=== PATIENT | female | born 1930 | race Caucasian/White ===

== ENCOUNTER → 2017-08-26 | Outpatient (REF) | payer MEDICARE, OTHER ==
[2017-01-02 10:25] VITALS: BMI 25.2
[~2017-08-26] MED LIST: ACE500 PO; AMLO-1 PO; AMLO1TAB PO; AMOX-362 PO; AMOX500T10 PO; ASC500 PO; ASPI-757 PO; ATEN-1 PO; CALC-649 PO; CALC-852 PO; CEFU500T10 PO; CELE-1 PO; CEPH250C37 PO; CYA1000 PO; CYAN100T31 PO; DULO60CA56 PO; EZE10 PO; GLUC-232 PO; GLUCOSAMINE CHO1 CA3 PO; HCTZ25 PO; HYDR-385 PO; HYDR-389 PO; HYDR-4308 PO; IBUP-56 PO; IBUP200C71 PO; IRON1TAB4 PO; LEVO250T41 PO; LEVO25TA56 PO; LEVO50TA80 PO; LISI-346 PO; MAGN400C PO; MULT-1335 PO; NAP250 PO; OMEG-11 PO; OMEG500C5 PO; OMEP-153 PO; PAN40 PO; ZOLP-350 PO
== END ==
LOC: ZZSENDIN 09:48
PROVIDERS: ATTEND Physician Assistant Medical
DX: L03.031 Cellulitis of right toe (principal)
CPT/HCPCS: 85651

== ENCOUNTER → 2017-09-20 | Outpatient (CLI) | payer MEDICARE, OTHER ==
[2017-01-02 10:25] VITALS: BMI 25.2
== END ==
LOC: CT 14:55
PROVIDERS: ATTEND Orthopaedic Surgery Hand Surgery
DX: Z02.9 Encounter for administrative examinations, unspecified (principal)

== ENCOUNTER → 2017-09-23 | Outpatient (CLI) | payer MEDICARE, OTHER ==
[2017-01-02 10:25] VITALS: BMI 25.2
--- NOTE | 2017-09-23 13:28 | RADIOLOGY IMAGING REPORT ---
[place] [facility] [place] NAME: ROME NELSON : [id number] MR: [id number] V: [id number] EXAM DATE: ORDERING PHYSICIAN: JEROME BRAGG TECHNOLOGIST: Caryl Jorge PROCEDURE:BILATERAL DIGITAL SCREENING MAMMOGRAM WITH CAD ASSISTED INTERPRETATION & 3D TOMOSYNTHESIS COMPARISON:Prior mammograms 03/16/16, 01/22/15, 02/04/14, 12/14/12, 01/04/12 INDICATIONS:SCREENING FINDINGS: Small amount of fibroglandular tissue is seen throughout the breasts. The parenchymal pattern has remained stable allowing for difference in mammographic technique & patient positioning. There is no evidence of malignant appearing mass, malignant appearing calcifications or other secondary sign of malignancy in either breast. DIAGNOSTIC CATEGORY 1--NEGATIVE. RECOMMENDATIONS: ROUTINE MAMMOGRAM AND CLINICAL EVALUATION. IMPRESSION: BIRADS 1: Negative No significant abnormality is seen Dictated by: Saba Rubalcava M.D. on 09/23/2017 at 10:58 Transcribed by: ABEL on 09/23/2017 at 13:04 Approved by: Saba Rubalcava M.D. on 09/23/2017 at 13:27 [facility]
== END ==
LOC: MAMO 02:57
PROVIDERS: ATTEND Family Medicine
DX: Z12.31 Encounter for screening mammogram for malignant neoplasm of breast (principal)
CPT/HCPCS: 77063; 77067

== ENCOUNTER → 2017-09-28 | Outpatient (CLI) | payer MEDICARE, OTHER ==
[2017-01-02 10:25] VITALS: BMI 25.2
--- NOTE | 2017-09-28 16:13 | EKG ---
FACILITY: [facility] PATIENT NAME: ROME NELSON : [id number] MR: [id number] V: [id number] EXAM DATE: ORDERING PHYSICIAN: WINSTON NG TECHNOLOGIST: SHAWNA Test Reason : PRE-OP Blood Pressure : / mmHG Vent. Rate : 080 BPM Atrial Rate : 080 BPM P-R Int : 156 ms QRS Dur : 108 ms QT Int : 384 ms P-R-T Axes : 067 000 063 degrees QTc Int : 442 ms Normal sinus rhythm Incomplete right bundle branch block Borderline ECG When compared with ECG of 19-NOV-2016 12:59, No significant change was found Confirmed by JEROME GOEL ([id number]) on 09/28/2017 6:26:37 PM Referred By: rohini Confirmed By:JEROME GOEL
[2017-09-28 16:33] LABS: PLATELET COUNT, AUTOMATED 290 K/uL (150-450)
== END ==
LOC: LAB 15:31
PROVIDERS: ATTEND Orthopaedic Surgery Hand Surgery
DX: Z01.810 Encounter for preprocedural cardiovascular examination (principal); Z01.812 Encounter for preprocedural laboratory examination; I45.10 Unspecified right bundle-branch block; I10 Essential (primary) hypertension; E03.9 Hypothyroidism, unspecified; N39.0 Urinary tract infection, site not specified; C44.90 Unspecified malignant neoplasm of skin, unspecified; M25.512 Pain in left shoulder; M19.012 Primary osteoarthritis, left shoulder
CPT/HCPCS: 36415; 81001; 82040; 82247; 82310; 82374; 82435; 82565; 82947; 84075; 84132; 84155; 84295; 84450; 84460; 84520; 85025; 87088; 93005

== ENCOUNTER → 2017-10-06 | Outpatient (REF) | payer MEDICARE, OTHER ==
[2017-01-02 10:25] VITALS: BMI 25.2
== END ==
LOC: ZZSENDIN 17:08
PROVIDERS: ATTEND Family Medicine
DX: Z01.818 Encounter for other preprocedural examination (principal)
CPT/HCPCS: 81001

== ENCOUNTER 2017-10-28 01:58 | Inpatient (IN) | payer MEDICARE, OTHER ==
[2017-10-27 16:08] LABS: INR 0.98
[2017-10-28] VITALS (15 sets, daily range): BP systolic 85–147; BP diastolic 37–84
[~2017-10-28] VITALS: Ht 167.6 cm; Wt 70.3 kg
[2017-10-28] MEDS ORDERED: TRANEXAMIC AC 1000 MG/10ML SDV 1,000 MG in DEXTROSE 5% 50 ML BAG 50 ML IV ONE (06:15)
[2017-10-28] MEDS ORDERED: LIDOCAINE/SOD BICARB 8.4% SYR ID ONE (06:15)
[2017-10-28] MEDS ORDERED: VANCOMYCIN 1 GM ADDVIAL 1 GM in NS(*) 0.9% 250 ML ADDVAN BAG 250 ML IVPB ONE (06:15)
[2017-10-28] MEDS ORDERED: MIDAZOLAM 2 MG/2 ML VIAL IVP PRN (06:15)
[2017-10-28] MEDS ORDERED: FAMOTIDINE 20 MG TAB PO ONE (06:15)
[2017-10-28] MEDS ORDERED: NORMOSOL R SOLN(*) 1000 ML BAG 1,000 ML IV PRN (06:15)
[2017-10-28] MEDS ORDERED: cloNIDine EPIDUR INJ 100MCG/ML 40 MCG, ROPIVACAINE 0.5% 20 ML VIAL 25 ML, EPINEPHrine H... INJ ONE (06:15)
[2017-10-28] MEDS ORDERED: THROMBIN TOP SOLN 5000INTLU VL ONE (06:29)
[2017-10-28] MEDS ORDERED: GELATIN SPONGE 12-7MM ONE (06:30)
[2017-10-28] MEDS ORDERED: fentaNYL CITR 100 MCG/2 ML AMP ONE (06:47)
[2017-10-28] MEDS ORDERED: ACETAMINOPHEN(*)1000 MG/100 ML 100 ML IVPB ONE (06:49)
[2017-10-28] MEDS ORDERED: DEXAMETHASONE SOD 4 MG/ML VIAL ONE (06:50)
[2017-10-28] MEDS ORDERED: PROPOFOL EMUL(*) 10MG/ML 20 ML 20 ML ONE (06:50)
[2017-10-28] MEDS ORDERED: LIDOCAINE MPF 1% 5 ML VIAL ONE ×2 (06:50→07:48)
[2017-10-28] MEDS ORDERED: ONDANSETRON 4 MG/2 ML VIAL ONE (06:50)
[2017-10-28] MEDS ORDERED: EPINEPHrine HCL 1 MG/ML AMP ONE (06:53)
[2017-10-28] MEDS ORDERED: ROPIVACAINE 0.5% 20 ML VIAL ONE (06:53)
[2017-10-28] MEDS ORDERED: NS 0.9% 20 ML SDV 20 ML ONE (06:53)
[2017-10-28] MEDS ORDERED: ePHEDrine 25 MG/5 ML DISP.SYR IVP ONE (07:35)
[2017-10-28] MEDS ORDERED: SUGAMMADEX SOD 200 MG/2 ML SDV ONE (07:49)
[2017-10-28] MEDS ORDERED: VASOPRESSIN 20 UNIT/ML VIAL ONE (07:49)
[2017-10-28] MEDS ORDERED: PROMETHAZINE 25 MG/ML 1 ML AMP IVP PRN (10:00)
[2017-10-28] MEDS ORDERED: KCL/D5LR 20 MEQ/1000 ML PREMIX 1,000 ML IV PRN (10:00)
[2017-10-28] MEDS ORDERED: ONDANSETRON 4 MG/2 ML VIAL IVP PRN (10:00)
[2017-10-28] MEDS ORDERED: ACETAMINOPHEN 500 MG TAB PO PRN (10:00)
[2017-10-28] MEDS ORDERED: diphenhydrAMINE 25 MG CAP PO PRN (10:00)
[2017-10-28] MEDS ORDERED: FLUSH 10 ML SYR IVP PRN (10:00)
--- NOTE | 2017-10-28 11:28 | RADIOLOGY IMAGING REPORT ---
FACILITY: [facility] PATIENT NAME: Cassie Saini : 1930 MR: [id number] V: [id number] EXAM DATE: ORDERING PHYSICIAN: WINSTON NG TECHNOLOGIST: Location: [facility] Patient: Cassie Saini : 1930 Visit/Account:[id number] Date of Sevice: 10/28/2017 SHOULDER 1 VIEW LEFT HISTORY: POSTOP LTSA COMPARISON: None FINDINGS: Single AP view of the left shoulder demonstrates the patient is status post replacement of the glenohumeral joint. There is no evidence of acute bony abnormality The acromioclavicular joint is normal in appearance. IMPRESSION: Status post left glenohumeral joint replacement. Report Dictated By: Cordell Bashir at 10/28/2017 11:17 AM Report E-Signed By: Cordell Bashir at 10/28/2017 11:22 AM WSN:[id number]
--- NOTE | 2017-10-28 14:59 | OPERATIVE REPORT 1 ---
EVENT DATE: October 28, 2017 SURGEON: Eduardo Hughes MD ANESTHESIOLOGIST: Feroz Donahue MD ANESTHESIA: General plus scalene block. 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 PROCEDURES PERFORMED 1. Curettage of cyst at glenoid. 2. Total shoulder arthroplasty. ESTIMATED BLOOD LOSS 100 INTRAVENOUS FLUIDS Crystalloid 1400, no colloid. SPECIMENS No specimens. COMPLICATIONS No complications. IMPLANTS USED [employer] 12 stem, 12 body, 44 glenoid, 48 x 12 eccentric head. SUMMARY OF PROCEDURE The patient was brought into the operating room and placed on the OR table in the supine position. An ultrasound was used to guide a scalene block by Dr. Donahue, after which he undertook a general anesthetic. She was placed in a semi -beach chair position with a Rossi stand at her arm to help support her. We did a standard prep and drape. The draping included Ioban placed on the arm to include coverage of the axilla. A deltopectoral approach was taken, deepened through skin and subcutaneous tissue. We identified the cephalic vein and left it with the deltoid, retracting it laterally. The conjoined tendon was identified. I palpated the axillary nerve and then placed a retractor. She had a very large amount of fluid in a fairly firm sac that had quite a bit of solid tissue as well that was emanating from the joint in the rotator interval. Initially I just tried to drain this, but it was actually quite thick and large, so I did remove the entire structure. We then irrigated out the debris. All the fluid that came out of it was clear, and it looked like normal joint fluid. I then cut the subscapularis in an anatomic position about 1 cm medial to the insertion and then placed tagging sutures. We then brought the head up and made our initial cut after having marked the axis of the cut. We did this at about 30 degrees of retroversion. The extra osteophytes were removed, and we rasped the margins, and then protected the head with a cap. We pushed it posteriorly and then circumferentially cleared the tissue from around the glenoid. Unlike most total shoulder arthroplasties wherein the glenoid is exposed and you could easily see the eburnated surface, in her case it was covered in dense inflammatory tissue with globules of very firm material that was rather unusual. We tried curetting and using unipolar cautery to remove this material, and there were multiple defects in the glenoid tissue. It almost looked like "Micronesian cheese." This is concerning with respect to her capacity for stability, and we were very careful with our retractor so as not to break the glenoid. Ultimately, we were able to clear all the soft tissue debris and get a good look at what bone we actually had available. I trialed a couple different sizes. It looked like a 44 would fit. We marked the best central access point and reamed, taking care to ream only so much that we could get down to subchondral bone and create a flat back surface. I then trialed the peg trial which fit well, so we placed thrombin-soaked Gelfoam sponges into the four holes while I also obtained bone graft from the reamer as well as the back side of the head and packed it into the 44 Stuart Peg implant. Cement was mixed. The thrombin-soaked Gelfoam sponges were removed. The wound was irrigated, including the surface of the glenoid, and then we dried it out, injected cement into the three peripheral holes, and then inserted the Stuart Peg glenoid. We held it in place until full polymerization, removed any excess cement, and then moved on to the humerus. For the humerus, her bone was quite soft. We reamed up to a 12, did a Periosteotome, and then a trial, but I did have to use the split-head contents of the cancellous bone to graft the neck to place it into more normal position, but even with that, an eccentric head fit best. I trialed an 18 and a 21. It looked like the 21 fit best, so we opened that and placed three drill holes in the neck of the humerus and then implanted the final insert. The rotator cuff was then reduced, and it looked like the subscapularis fit very nicely. The wound was copiously irrigated. We did not do any deep injection because she had a block. We then repaired the subscapularis in anatomic position, and it was fairly good tissue. We used the transosseous sutures placed previously to augment the repair. The wound was irrigated one more time before closing subcutaneous tissue with 3-0 Vicryl, followed by 4-0 Monocryl for subcuticular closure with Steri-Strips applied. She was given a dry, sterile dressing and was awakened and transferred to the recovery area in stable condition. XENIA
--- NOTE | 2017-10-28 15:41 | Hospitalist Progress Note ---
Subjective Progress Notes Subjective No cp/sob. She had a bigeminal rhythm during surgery that resolved with stopping anesthetics. Lowest SBP was 80 during surgery. EBL was 100cc. 1400cc of crystalloid, TXA, dexamethasone, ephedrine, epinephrine and vasopressin given intra-op. Physical Exam Vital Signs Date Time Temp Pulse Resp B/P (MAP) Pulse Ox O2 Delivery O2 Flow Rate FiO2 10/28/17 13:41 72 10/28/17 13:00 112/57 (75) 94 Nasal Cannula 1.0 10/28/17 10:38 97.5 20 Intake and Output 10/29/17 07:00 Intake Total 2090 ml Output Total 100 ml Balance 1990 ml Intake Oral 440 ml IV Total 1650 ml Output Estimated Blood Loss 100 ml # Voids 3 General Appearance: Alert, Awake, No Acute Distress Cardiovascular: Regular Rate and Rhythm Respiratory: Clear to Auscultation Extremities: No Edema Result Diagram: 10/28/17 0944 Assessment and Plan Problems: (1) Status post total shoulder arthroplasty Status: Acute Assessment & Plan: No pulmonary issues. She had bigeminy after surgery induction (likely ventricular). See below. (2) Essential hypertension Status: Chronic Assessment & Plan: She is chronically on Exforge (amlodipine/valsartan/HCTZ), so will restart the medications individually based on BP. (3) Bigeminy Status: Acute Assessment & Plan: After induction of surgery she had frequent PVC's and bigeminy at times. She is asymptomatic. Because she received ephedrine, epinephrine and vasopressin intra-op, will get an ECG now and check a Troponin in the morning. She will be watched on telemetry. (4) Hypothyroid Status: Chronic Assessment & Plan: Continue levothyroxine. (5) Peripheral neuropathy Status: Chronic Assessment & Plan: Continue Duloxetine. Problem Qualifiers (1) Status post total shoulder arthroplasty: Laterality: left Qualified Codes: Z96.612 - Presence of left artificial shoulder joint EMMANUEL CHAPARRO MD Oct 28, 2017 15:41
--- NOTE | 2017-10-28 16:19 | EKG ---
FACILITY: [facility] [place] PATIENT NAME: ROME NELSON : [id number] MR: [id number] V: [id number] EXAM DATE: ORDERING PHYSICIAN: EMMANUEL CHAPARRO TECHNOLOGIST: RALPH Test Reason : BIGEMINY DURING SURG Blood Pressure : / mmHG Vent. Rate : 084 BPM Atrial Rate : 084 BPM P-R Int : 184 ms QRS Dur : 100 ms QT Int : 408 ms P-R-T Axes : 044 -11 029 degrees QTc Int : 482 ms Sinus rhythm with occasional premature ventricular complexes Otherwise normal ECG When compared with ECG of 28-SEP-2017 15:57, premature ventricular complexes are now present Incomplete right bundle branch block is no longer present Confirmed by EMMANUEL CHAPARRO ([id number]) on 10/28/2017 5:00:40 PM Referred By: HERNANDEZ Confirmed By:EMMANUEL CHAPARRO
[2017-10-28] MEDS: DULoxetine HCL 30 MG CAPCR PO SCH (21:05)
[2017-10-29 02:23] VITALS: BP 117/67
[2017-10-29] MEDS: APAP/HYDROCODONE 325/5 TAB PO PRN ×2 (04:33→11:48)
[2017-10-29] MEDS ORDERED: LEVOTHYROXINE SOD 0.05 MG TAB PO SCH (06:00)
[2017-10-29 06:44] LABS: PLATELET COUNT, AUTOMATED 224 K/uL (150-450)
--- NOTE | 2017-10-29 07:47 | Hospitalist Progress Note ---
Subjective Progress Notes Subjective No cp/sob. No concerns from the patient or staff. Physical Exam Vital Signs Date Time Temp Pulse Resp B/P (MAP) Pulse Ox O2 Delivery O2 Flow Rate FiO2 10/29/17 04:39 85 10/29/17 02:23 98.4 82 14 117/67 (84) Nasal Cannula 1.0 General Appearance: Alert, Awake, No Acute Distress Respiratory: Clear to Auscultation Result Diagram: 10/29/17 0556 10/29/17 0556 Assessment and Plan Problems: (1) Status post total shoulder arthroplasty Status: Acute Assessment & Plan: No pulmonary issues. She had bigeminy after surgery induction (likely ventricular). See below. (2) Hypoxia Status: Acute Assessment & Plan: The lungs are clear. There is low clinical suspicion for PE or pneumonia. It is secondary to narcotics, recent surgery and Kathryn's high elevation. If the patient goes home on O2, then the patient is to follow up the PCP's office to check a room air saturation in a couple of days to check need. (3) Essential hypertension Status: Chronic Assessment & Plan: She is chronically on Exforge (amlodipine/valsartan/HCTZ), so will restart the medications individually based on BP while in the hospital. As an outpatient, she is to restart 2 days after going home. (4) Bigeminy Status: Acute Assessment & Plan: After induction of surgery she had frequent PVC's and bigeminy at times. She is asymptomatic. ECG post-op was relatively unchanged and had some PVC's. Troponin was negative this morning. (5) Hypothyroid Status: Chronic Assessment & Plan: Continue levothyroxine. (6) Peripheral neuropathy Status: Chronic Assessment & Plan: Continue Duloxetine. Copies to: JEROME BRAGG MD Exam Sepsis Risk: No Definite Risk Problem Qualifiers (1) Status post total shoulder arthroplasty: Laterality: left Qualified Codes: Z96.612 - Presence of left artificial shoulder joint EMMANUEL CHAPARRO MD Oct 29, 2017 07:47
[2017-10-29] MEDS ORDERED: VALSARTAN 80 MG TAB PO SCH (09:00)
[2017-10-29] MEDS ORDERED: amLODIPine BESYL(*) 5 MG TAB PO SCH (09:00)
[2017-10-29] MEDS ORDERED: HYDROCHLOROTHIAZIDE 25 MG TAB PO SCH (09:00)
[2017-10-29 09:14] VITALS: BP 131/86
[2017-10-29] MEDS: DULoxetine HCL 30 MG CAPCR PO SCH (09:23)
[2017-10-29] MEDS ORDERED: HYDR-385 PO (11:04)
[2017-10-29 12:39] VITALS: Ht 167.6 cm; Wt 70.3 kg
== END 2017-10-29 14:20 | disposition home or self-care (01) | DRG 483 ==
LOC: OR 01:58 → MED 10:38
PROVIDERS: ADMIT Orthopaedic Surgery Hand Surgery; ATTEND Orthopaedic Surgery Hand Surgery
PROC: 0RBK0ZZ Excision of Left Shoulder Joint, Open Approach (ICD-10-PCS; 2017-10-28)
PROC: 0RRK0JZ Replacement of Left Shoulder Joint with Synthetic Substitute, Open Approach (ICD-10-PCS; principal; 2017-10-28 07:10)
DX: M19.012 Primary osteoarthritis, left shoulder (principal); M25.812 Other specified joint disorders, left shoulder; I10 Essential (primary) hypertension; K21.9 Gastro-esophageal reflux disease without esophagitis; J44.9 Chronic obstructive pulmonary disease, unspecified; E03.9 Hypothyroidism, unspecified; G62.9 Polyneuropathy, unspecified; Z96.651 Presence of right artificial knee joint; Z96.611 Presence of right artificial shoulder joint; R00.8 Other abnormalities of heart beat; T41.205A Adverse effect of unspecified general anesthetics, initial encounter; R09.02 Hypoxemia; T70.29XA Other effects of high altitude, initial encounter; T40.605A Adverse effect of unspecified narcotics, initial encounter; Y92.234 Operating room of hospital as the place of occurrence of the external cause; Y83.8 Other surgical procedures as the cause of abnormal reaction of the patient, or of later complication, without mention of misadventure at the time of the procedure; Y79.3 Surgical instruments, materials and orthopedic devices (including sutures) associated with adverse incidents; Z86.73 Personal history of transient ischemic attack (TIA), and cerebral infarction without residual deficits; Z90.710 Acquired absence of both cervix and uterus; Z87.891 Personal history of nicotine dependence
CPT/HCPCS: 36415; 82310; 82374; 82435; 82565; 82947; 84132; 84295; 84484; 84520; 85014; 85018; 85025; 85610; 86850; 86900; 86901; 93005; 97165; A4565; C1713; C1776; J0131; J0171; J0735; J1100; J1885; J2001; J2250; J2405; J2704; J2795; J3010; J3370; J3490; J7050; J7060

== ENCOUNTER → 2018-05-01 | Outpatient (CLI) | payer MEDICARE, OTHER ==
[2017-10-29 12:39] VITALS: BMI 25.0
[~2018-05-01] MED LIST changes: +AMLO-111 PO; -AMLO1TAB PO; +DICL100G39 TOP; +DULO30CA6 PO; -HYDR-4308 PO; +HYDR-654 PO; +IBUP-136 PO; -IBUP200C71 PO; +LOSA-54 PO; +[UNRECOGNIZED DRUG - CODE] PO
[2018-05-01 10:49] LABS: PLATELET COUNT, AUTOMATED 263 K/uL (150-450)
== END ==
LOC: LAB 10:20
PROVIDERS: ATTEND Family Medicine
DX: E03.9 Hypothyroidism, unspecified (principal); I10 Essential (primary) hypertension
CPT/HCPCS: 36415; 82040; 82247; 82310; 82374; 82435; 82565; 82947; 84075; 84132; 84155; 84295; 84443; 84450; 84460; 84520; 85025

== ENCOUNTER → 2018-07-19 | Outpatient (CLI) | payer MEDICARE, OTHER ==
[2017-10-29 12:39] VITALS: BMI 25.0
[~2018-07-19] MED LIST changes: +REGADENOSON 0.4 MG/5 ML SYR ONE
--- NOTE | 2018-07-19 19:54 | RT STRESS TEST REPORT ---
[place] [facility] [place] NAME: ROME NELSON : [id number] MR: [id number] V: [id number] EXAM DATE: ORDERING PHYSICIAN: ELISEO BE TECHNOLOGIST: Ethan Acquisition Time: 2018-07-19 14:37:38 Total Exercise Time: 00:01:00 Test Indications: Chest pain Medications: See chart Protocol: LEXISCAN Max HR: 088 BPM 66% of Pred: 132 BPM Max BP: 155/089 mmHG Max Work Load: 1.0 METS Nondiagnostic EKG portion of test, await radiology. Confirmed by Osbaldo Tejeda ([id number]) on 07/19/2018 7:53:56 PM Referred By: Overread By: Osbaldo Burnett
--- NOTE | 2018-07-20 12:23 | RADIOLOGY IMAGING REPORT ---
FACILITY: [facility] PATIENT NAME: Cassie Saini : 1930 MR: [id number] V: [id number] EXAM DATE: ORDERING PHYSICIAN: ELISEO BE TECHNOLOGIST: Location: [facility] [place] Patient: Cassie Saini : 1930 Visit/Account:[id number] Date of Sevice: 07/19/2018 EXAMINATION: Single isotope SPECT imaging with regadenoson infusion and gated SPECT imaging. DATE OF EXAMINATION: July 19, 2018. DATE OF INTERPRETATION: July 20, 2018. REQUESTING PHYSICIAN: ELISEO BE. INDICATION: The patient is a 88-year-old male evaluated for chest pain. PROCEDURE: After informed consent the patient received an intravenous injection of 11.9 mCi of Tc-99 m sestamibi followed at an appropriate time interval by rest imaging. The patient then subsequently received an intravenous infusion of 0.4 mg of regadenoson per protocol without complication. Resting heart rate was 76 bpm with a peak heart rate of 86 bpm. Blood pressure at rest was 155 / 89 and fol lowing infusion was 130 / 61. Baseline EKG demonstrates sinus rhythm with minor T-wave changes. The re were no EKG changes of ischemia following infusion. Symptoms were nonspecific. The patient then received an intravenous injection of 29.7 mCi of Tc-99m sestamibi followed by stress imaging. RAW DATA: Examination of the summed raw data revealed a good quality study. MYOCARDIAL PERFUSION: The tomographic images demonstrate normal perfusion. GATED IMAGES: The gated images demonstrate normal wall motion and thickening. Ejection fraction 77%. IMPRESSION: 1. Electrocardiogram demonstrated no ischemia during Lexiscan infusion 2. Normal myocardial perfusion scan. 3. Normal LV systolic function; LVEF 77%. 4. Based on the results of this exam, the patient appears to be at low risk for future cardiovascular events. Report Dictated By: Gregory Paredes at 07/20/2018 12:14 PM Report E-Signed By: Gregory Paredes at 07/20/2018 12:18 PM WSN:[id number]
== END ==
LOC: NUC 02:41
PROVIDERS: ATTEND Family Medicine
DX: R07.9 Chest pain, unspecified (principal)
CPT/HCPCS: 78452; 93017; A9500; J2785

== ENCOUNTER 2018-09-24 15:07 | Emergency (ER) | payer MEDICARE, OTHER ==
[2017-10-29 12:39] VITALS: Wt 69.9 kg
[~2018-09-24 15:07] MED LIST changes: -AMLO-111 PO; +AMLO-125 PO; +AMOX-559 PO; -REGADENOSON 0.4 MG/5 ML SYR ONE
--- NOTE | 2018-09-24 15:18 | ER Report ---
History and Physical Time Seen By MD: 15:18 Hx. of Stated Complaint: left sided face pain HPI/ROS CHIEF COMPLAINT: Left sided pain HISTORY OF PRESENT ILLNESS: 88-year-old female patient presents to emergency room with complaint of left-sided pain. Patient states that this been going on since yesterday. She states that it starts the left cheek and then goes down the left arm and all way down to her toes. She states pain is intermittent. She became concerned that she may be having a CVA and wanted to be evaluated. Ligia leiva denies having any weakness to her upper extremities passive states that she may have some weakness in the left lower extremity. She denies having any fevers, chills, nausea, vomiting or diarrhea. Patient has not taken any medication for this. REVIEW OF SYSTEMS: Respiratory: No cough, no dyspnea. Cardiovascular: No chest pain, no palpitations. Gastrointestinal: No vomiting, no abdominal pain. Musculoskeletal: No back pain. Allergies: Coded Allergies: morphine (Verified Adverse Reaction, Severe, NAUSEA, VOMITING, HALLUCINATIONS, 09/24/18) Home Meds Active Scripts Amlodipine Besylate (AMLODIPINE BESYLATE) 5 Mg Tablet, 1 TAB PO QDAY for 90 Days, #90 TAB 4 Refills Prov:ELISEO BE MD 08/02/18 Losartan/Hydrochlorothiazide (LOSARTAN-HCTZ 100-25 MG TAB) 1 Each Tablet, 1 EACH PO QDAY for 90 Days, #90 TAB 4 Refills Prov:ELISEO BE MD 08/02/18 Duloxetine Hcl (CYMBALTA) 60 Mg Capsule.dr, 1 CAP PO QAM for 90 Days, #90 TAB 4 Refills Prov:ELISEO BE MD 07/12/18 Diclofenac Sodium 1% Gel (VOLTAREN 1% GEL) 100 Gm Gel..gram., 2 GM TOP TID for 30 Days, #1 TUBE 4 Refills Prov:ELISEO BE MD 05/01/18 Reported Medications Iron,Carbonyl/Ascorbic Acid (IRON 100-VITAMIN C TABLET) 1 Each Tablet, 1 EACH PO QDAY 01/02/17 Cyanocobalamin (Vitamin B-12) (VITAMIN B-12) 1,000 Mcg Tablet, 1000 MCG PO QDAY 10/06/16 Calcium Carbonate/Vitamin D3 (CALCIUM 600 + VIT D 200 TABLET) 1 Each Tablet, 1 EACH PO BID 10/06/16 Levothyroxine Sodium (SYNTHROID) 50 Mcg Tablet, 1 TAB PO QDAY, TAB 10/06/16 Multivitamins W-Minerals (Multiple Vitamin) 1 Tab Tablet, 1 TAB PO DAILY, 0 Refills 12/26/09 Acetaminophen (Tylenol) 500 Mg Tab, 2 TAB PO TID PRN for PAIN, 0 Refills 12/26/09 Discontinued Scripts Amoxicillin/Pot Clav 875-125 Mg Tab (AUGMENTIN 875-125 TABLET) 1 Each Tablet, 1 TAB PO Q12H for 7 Days, #14 TAB 0 Refills Prov:WAN OTOOLE DNP, EMPLOYEE'S REPRESENTATIVE-BC 08/14/18 Past Medical/Surgical History Patient has a past medical history of TIA, hypertension, hyperlipidemia, H. pylori, reflux, urinary frequency, frequent UTI, arthritis, arm fracture, clavicle fracture, finger fracture, hypothyroidism, alcohol use, skin cancer. 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 Patient has a family medical history of cancer, CAD, stroke, diabetes. Reviewed Nurses Notes: Yes Hx Smoking: No (1 ppw, quit 1956) Smoking Status: Former Smoker Hx Substance Use Disorder: No Hx Alcohol Use: Yes Constitutional Vital Sign - Last 24 Hours 09/24/18 09/24/18 09/24/18 09/24/18 15:11 15:13 15:15 15:17 Temp 97.7 Pulse 89 Resp 12 B/P (MAP) 174/82 (112) 174/82 127/118 (121) 117/99 (105) Pulse Ox 94 O2 Delivery Room Air 09/24/18 09/24/18 09/24/18 09/24/18 15:30 16:00 16:07 16:28 Pulse 73 72 Resp 31 14 B/P (MAP) 136/70 (92) 161/151 (154) Pulse Ox 93 92 Physical Exam General Appearance: The patient is alert, has no immediate need for airway protection and no current signs of toxicity. Respiratory: Chest is non tender, lungs are clear to auscultation. Cardiac: regular rate and rhythm Gastrointestinal: Abdomen is soft and non tender, no masses, bowel sounds normal. Musculoskeletal: Neck: Neck is supple and non tender. Extremities have full range of motion and are non tender. Skin: No rashes or lesions. Neuro: Patient is alert and oriented 4, cranial nerves II through XII grossly intact. DIFFERENTIAL DIAGNOSIS: After history and physical exam differential diagnosis was considered for stroke, transient pain, shingles. Medical Decision Making Data Points Result Diagram: 09/24/18 1545 09/24/18 1545 Laboratory Hematology Test 09/24/18 15:32 09/24/18 15:45 Whole Blood Glucose 119 mg/DL (75-110) Red Blood Count 4.70 M/uL (4.17-5.56) Mean Corpuscular Volume 86.7 fL (80.0-96.0) Mean Corpuscular Hemoglobin 29.4 pg (26.0-33.0) Mean Corpuscular Hemoglobin Concent 33.9 g/dL (32.0-36.0) Red Cell Distribution Width 15.8 % (11.5-14.5) Mean Platelet Volume 8.4 fL (7.2-11.1) Neutrophils (%) (Auto) 66.9 % (39.4-72.5) Lymphocytes (%) (Auto) 23.4 % (17.6-49.6) Monocytes (%) (Auto) 6.2 % (4.1-12.4) Eosinophils (%) (Auto) 3.3 % (0.4-6.7) Basophils (%) (Auto) 0.2 % (0.3-1.4) Nucleated RBC Relative Count (auto) 0.0 /100WBC Neutrophils # (Auto) 3.8 K/uL (2.0-7.4) Lymphocytes # (Auto) 1.3 K/uL (1.3-3.6) Monocytes # (Auto) 0.4 K/uL (0.3-1.0) Eosinophils # (Auto) 0.2 K/uL (0.0-0.5) Basophils # (Auto) 0.0 K/uL (0.0-0.1) Nucleated RBC Absolute Count (auto) 0.00 K/uL Prothrombin Time 12.5 seconds (12.0-14.4) Prothromb Time International Ratio 0.94 Activated Partial Thromboplast Time 29 seconds (23-35) Sodium Level 138 mmol/L (137-145) Potassium Level 3.4 mmol/L (3.5-5.0) Chloride Level 103 mmol/L (98-107) Carbon Dioxide Level 24 mmol/L (22-31) Blood Urea Nitrogen 19 mg/dl (7-18) Creatinine 0.60 mg/dl (0.52-1.04) Glomerular Filtration Rate Calc > 60.0 Random Glucose 114 mg/dl (75-110) Calcium Level 9.8 mg/dl (8.4-10.2) Total Bilirubin 0.7 mg/dl (0.2-1.3) Aspartate Amino Transf (AST/SGOT) 30 U/L (0-35) Alanine Aminotransferase (ALT/SGPT) 22 U/L (0-56) Alkaline Phosphatase 70 U/L (0-126) Troponin I < 0.012 ng/ml Total Protein 7.0 g/dl (6.3-8.2) Albumin 4.4 g/dl (3.5-5.0) Chemistry Test 09/24/18 15:32 09/24/18 15:45 Whole Blood Glucose 119 mg/DL (75-110) White Blood Count 5.7 k/uL (4.5-11.0) Red Blood Count 4.70 M/uL (4.17-5.56) Hemoglobin 13.8 g/dL (12.0-16.0) Hematocrit 40.8 % (34.0-47.0) Mean Corpuscular Volume 86.7 fL (80.0-96.0) Mean Corpuscular Hemoglobin 29.4 pg (26.0-33.0) Mean Corpuscular Hemoglobin Concent 33.9 g/dL (32.0-36.0) Red Cell Distribution Width 15.8 % (11.5-14.5) Platelet Count 238 K/uL (150-450) Mean Platelet Volume 8.4 fL (7.2-11.1) Neutrophils (%) (Auto) 66.9 % (39.4-72.5) Lymphocytes (%) (Auto) 23.4 % (17.6-49.6) Monocytes (%) (Auto) 6.2 % (4.1-12.4) Eosinophils (%) (Auto) 3.3 % (0.4-6.7) Basophils (%) (Auto) 0.2 % (0.3-1.4) Nucleated RBC Relative Count (auto) 0.0 /100WBC Neutrophils # (Auto) 3.8 K/uL (2.0-7.4) Lymphocytes # (Auto) 1.3 K/uL (1.3-3.6) Monocytes # (Auto) 0.4 K/uL (0.3-1.0) Eosinophils # (Auto) 0.2 K/uL (0.0-0.5) Basophils # (Auto) 0.0 K/uL (0.0-0.1) Nucleated RBC Absolute Count (auto) 0.00 K/uL Prothrombin Time 12.5 seconds (12.0-14.4) Prothromb Time International Ratio 0.94 Activated Partial Thromboplast Time 29 seconds (23-35) Glomerular Filtration Rate Calc > 60.0 Calcium Level 9.8 mg/dl (8.4-10.2) Total Bilirubin 0.7 mg/dl (0.2-1.3) Aspartate Amino Transf (AST/SGOT) 30 U/L (0-35) Alanine Aminotransferase (ALT/SGPT) 22 U/L (0-56) Alkaline Phosphatase 70 U/L (0-126) Troponin I < 0.012 ng/ml Total Protein 7.0 g/dl (6.3-8.2) Albumin 4.4 g/dl (3.5-5.0) Coagulation Test 09/24/18 15:45 Prothrombin Time 12.5 seconds Prothromb Time International Ratio 0.94 Activated Partial Thromboplast Time 29 seconds EKG/Imaging Imaging Technique: CHEST PA LAT HISTORY: left sided pain Comparison studies: Chest radiographs August 02, 2016 FINDINGS: No acute airspace consolidation. There is pulmonary hyperexpansion. Left basilar scarring is noted. The cardiac silhouette is unchanged. IMPRESSION: 1. Chronic lung findings as above. Report Dictated By: Juan Connell DO at 09/24/2018 4:07 PM Report E-Signed By: Juan Connell DO at 09/24/2018 4:[address] BRAIN NO CONTRAST HISTORY: Left-sided pain COMPARISON STUDIES: 11/19/2016 TECHNIQUE: Contiguous axial images were obtained from the skull base to the vertex. One of the following dose optimization techniques was utilized in the performance of this exam: Automated exposure control; adjustment of the mA and/or kV according to the patient's size; or use of an iterative reconstruction technique. Specific details can be referenced in the facility's radiology CT exam operational policy. FINDINGS: Hemorrhage: Negative Ventricles / sulci / fissures: Mild generalized cortical atrophy is noted Masses / midline shift: Negative White matter: Negative Lundy-white differentiation: Negative Extra-axial spaces: Negative Bones and skull base: Negative Visualized mastoid air cells / paranasal sinuses: Small amount of fluid in the left sphenoid sinus is noted IMPRESSION: 1. Unremarkable non-contrast head CT. No evidence for acute intracranial hemorrhage, mass or acute ischemia. Mild generalized cortical atrophy. Report Dictated By: Eduardo Muller MD at 09/24/2018 4:09 PM Report E-Signed By: Eduardo Muller MD at 09/24/2018 4:14 PM ED Course/Re-evaluation ED Course Patient was admitted to an exam room, history and physical were obtained. Differential diagnoses were considered. On examination lungs are clear, heart is regular, abdomen soft nontender. Neurologically the patient is completely intact. She has full strength in upper and lower extremities, she is able to follow directions. A CBC, CMP, chest x-ray, CT scan of the head, urinalysis were done. Lab results were unremarkable. Patient had no urinary tract infection. Patient had a negative chest x-ray and CT scan of the head. I discussed the findings with the patient. She states she did have some improved comfort with the pain to the side of her head and left-sided body. Patient states the pain does seem to come and go. We'll go ahead and discharge her home at this time. She is to follow-up with her primary care provider next week. Decision to Disposition Date: Sep 24, 2018 Decision to Disposition Time: 16:34 Depart Departure Latest Vital Signs Vital Signs Date Time Temp Pulse Resp B/P (MAP) Pulse Ox O2 Delivery O2 Flow Rate FiO2 09/24/18 16:28 72 14 92 09/24/18 16:00 161/151 (154) 09/24/18 15:13 97.7 Room Air Impression: Primary Impression: Left-sided face pain Condition: Improved Disposition: HOME OR SELF-CARE Referrals: ELISEO BE MD (PCP) Patient Instructions: GENERAL ER DISCHARGE INSTRUCTIONS Additional Instructions: Continue with your normal medications. Follow up with Dr. Be in the next week. Get plenty of rest. Take Tylenol as needed for pain. Return to the ER if condition worsens. KRISTIN SALDIVAR Sep 24, 2018 15:18
--- NOTE | 2018-09-24 15:34 | EKG ---
[place] [facility] [place] NAME: ROME NELSON : [id number] MR: [id number] V: [id number] EXAM DATE: ORDERING PHYSICIAN: KRISTIN SALDIVAR TECHNOLOGIST: SHAGGY Test Reason : POSS TIA Blood Pressure : / mmHG Vent. Rate : 072 BPM Atrial Rate : 072 BPM P-R Int : 162 ms QRS Dur : 096 ms QT Int : 388 ms P-R-T Axes : 058 -29 045 degrees QTc Int : 424 ms Normal sinus rhythm Normal ECG When compared with ECG of 28-OCT-2017 16:07, premature ventricular complexes are no longer present QT has shortened Confirmed by JEROME GOEL ([id number]) on 09/25/2018 2:09:11 AM Referred By: AMIRAH Confirmed By:JEROME GOEL
[2018-09-24 15:54] LABS: PLATELET COUNT, AUTOMATED 238 K/uL (150-450)
[2018-09-24 16:00] VITALS: BP 161/151
[2018-09-24 16:01] LABS: INR 0.94
--- NOTE | 2018-09-24 16:14 | RADIOLOGY IMAGING REPORT ---
FACILITY: [facility] PATIENT NAME: Cassie Saini : 1930 MR: [id number] V: [id number] EXAM DATE: ORDERING PHYSICIAN: KRISTIN SALDIVAR TECHNOLOGIST: Location: [facility] - [place] Patient: Cassie Saini : 1930 Visit/Account:[id number] Date of Sevice: 09/24/2018 Technique: CHEST PA LAT HISTORY: left sided pain Comparison studies: Chest radiographs August 02, 2016 FINDINGS: No acute airspace consolidation. There is pulmonary hyperexpansion. Left basilar scarring i s noted. The cardiac silhouette is unchanged. IMPRESSION: 1. Chronic lung findings as above. Report Dictated By: Juan Connell DO at 09/24/2018 4:07 PM Report E-Signed By: Juan Connell DO at 09/24/2018 4:10 PM WSN:[id number]
--- NOTE | 2018-09-24 16:18 | RADIOLOGY IMAGING REPORT ---
FACILITY: [facility] - [place] PATIENT NAME: Cassie Saini : 1930 MR: [id number] V: [id number] EXAM DATE: ORDERING PHYSICIAN: KRISTIN SALDIVAR TECHNOLOGIST: [place] [facility] [place] Saini : 1930 Visit/Account:[id number] Date of Sevice: 09/24/2018 CT BRAIN NO CONTRAST HISTORY: Left-sided pain COMPARISON STUDIES: 11/19/2016 TECHNIQUE: Contiguous axial images were obtained from the skull base to the vertex. One of the following dose optimization techniques was utilized in the performance of this exam: Autom ated exposure control; adjustment of the mA and/or kV according to the patient's size; or use of an i terative reconstruction technique. Specific details can be referenced in the facility's radiology C T exam operational policy. FINDINGS: Hemorrhage: Negative Ventricles / sulci / fissures: Mild generalized cortical atrophy is noted Masses / midline shift: Negative White matter: Negative Lundy-white differentiation: Negative Extra-axial spaces: Negative Bones and skull base: Negative Visualized mastoid air cells / paranasal sinuses: Small amount of fluid in the left sphenoid sinus is noted IMPRESSION: 1. Unremarkable non-contrast head CT. No evidence for acute intracranial hemorrhage, mass or acute i schemia. Mild generalized cortical atrophy. Report Dictated By: Eduardo Muller MD at 09/24/2018 4:09 PM Report E-Signed By: Eduardo Muller MD at 09/24/2018 4:14 PM WSN:[id number]
== END 2018-09-24 16:51 | disposition home or self-care (01) ==
LOC: ER 15:18
DX: R51 Headache (principal)
CPT/HCPCS: 36416; 70450; 71046; 82040; 82247; 82310; 82374; 82435; 82565; 82947; 82948; 84075; 84132; 84155; 84295; 84450; 84460; 84484; 84520; 85025; 85610; 85730; 93005; 99284